=== PATIENT | male | born 1950 | race Two or more races ===

== ENCOUNTER → 2018-01-08 | Outpatient (CLI) | payer OTHER | END | disposition home or self-care (01) | LOC: RD 12:23 | DX: S89.91XA Unspecified injury of right lower leg, initial encounter (principal); M12.571 Traumatic arthropathy, right ankle and foot; X58.XXXA Exposure to other specified factors, initial encounter; Y92.9 Unspecified place or not applicable; Y99.9 Unspecified external cause status ==